=== PATIENT | female | born 1965 | race Caucasian/White ===

== ENCOUNTER → 2024-07-18 14:04 | Outpatient (REF) | payer BC, SELFPAY | LOC: HWRAD 14:04 | PROVIDERS: ATTENDING PHYSICIAN Family Medicine | DX: M25.521 Pain in right elbow (principal); M25.531 Pain in right wrist | CPT/HCPCS: 73080; 73110 ==

== ENCOUNTER 2024-08-04 11:01 | Outpatient (RCR) | payer BC, SELFPAY | END 2024-08-04 23:59 | disposition home or self-care (01) | LOC: ROT 11:01 | PROVIDERS: ATTENDING PHYSICIAN Family Medicine | DX: M77.11 Lateral epicondylitis, right elbow (principal); Z73.6 Limitation of activities due to disability; M25.531 Pain in right wrist; M62.81 Muscle weakness (generalized) | CPT/HCPCS: 97010; 97035; 97110; 97166; 97535 ==

== ENCOUNTER → 2024-08-08 14:04 | Outpatient (REF) | payer BC, SELFPAY | LOC: HWRAD 14:04 | PROVIDERS: ATTENDING PHYSICIAN Family Medicine | DX: R93.7 Abnormal findings on diagnostic imaging of other parts of musculoskeletal system (principal); N95.1 Menopausal and female climacteric states | CPT/HCPCS: 77080 ==

== ENCOUNTER 2024-09-01 11:03 | Outpatient (RCR) | payer BC, SELFPAY | END 2024-09-01 23:59 | disposition home or self-care (01) | LOC: ROT 11:03 | PROVIDERS: ATTENDING PHYSICIAN Family Medicine | DX: M77.11 Lateral epicondylitis, right elbow (principal); Z73.6 Limitation of activities due to disability | CPT/HCPCS: 97010; 97035; 97110; 97140 ==

== ENCOUNTER 2024-09-26 16:17 | Emergency (ER) | payer BC, SELFPAY ==
[2024-09-26 16:20] VITALS: BP 151/113
--- NOTE | 2024-09-26 16:29 | ED.GENMED ---
ED Provider Triage
<Willis Merino PA-C - Last Filed: 09/26/24 16:31>
-
Patient seen by provider in Triage?: Seen in Triage
Attestation: A medical screening examination has been initiated by a qualified medical provider. Based on the assessment performed at this time, it has been determined that an emergent medical condition may exist and the patient has been informed
that further medical evaluation and possible additional diagnostic testing may be needed.
HPI: 58-year-old female sent to the emergency department at request of primary care provider for evaluation of lower abdominal pain and rectal bleeding that is been ongoing since September 07. Not any worse today but symptoms not improving. Patient
hemodynamically stable and in no acute distress. Labs and CT of the abdomen and pelvis ordered.
GENERAL: Alert , in no apparent distress
EYE: No visual abnormalities.
NECK: Trachea midline
ENT: No visible abnormalities.
LUNGS: No acute respiratory distress
NEUROLOGICAL: Alert and oriented
SKIN: Skin intact. No visible changes.
MUSCULOSKELETAL: Moving extremities normally
PSYCH: Normal and appropriate interaction.
This is a medical evaluation conducted in person to initiate diagnostic evaluation and provide initial therapeutics. Please see further documentation by the treating clinician.
History of Present Illness
<Willis Merino PA-C - Last Filed: 09/26/24 16:31>
General
Chief Complaint: Rectal Bleeding
Time Seen by Provider: 09/26/24 19:10
<ILYA Wang - Last Filed: 09/26/24 20:26>
General
Source: patient
Exam Limitations: none
History of Present Illness
History of Present Illness:
This is a 58 year old female that comes in with c/o rectal bleeding. State that this started on September 07. States that it is bright red bleeding and it is when she has a stool. States that she has only gone once daily. States that she does have
hemorrhoids. States that she has abd pain. Denies any fever, chills, chest pain, SOB, nausea, vomiting, diarrhea, headache, dizziness, urinary burning.
Past History
<Willis Merino PA-C - Last Filed: 09/26/24 16:31>
Past History
ED Past Medical History: Other (N/A)
ED Past Surgical History: Other (N/A)
Social History
Tobacco: Non-smoker
Personal:
Living: with family
<ILYA Wang - Last Filed: 09/26/24 20:26>
Past History
ED Past Medical History: Cancer (Left breast cancer) and Other (Headache, )
ED Past Surgical History: and Other (Left breast lumpectomy Then mastectomy, abd skin flap)
Social History
Tobacco: Non-smoker
Alcohol: Daily (Beer 2)
Personal:
Living: with family
Review of Systems
<ILYA Wang - Last Filed: 09/26/24 20:26>
Review of Systems
All Other Systems: ROS reviewed and negative except as documented in HPI and ROS
Constitutional: Reports no symptoms; Denies fever or chills
EENT: Reports no symptoms
Respiratory: Denies cough or trouble breathing
Cardiac: Reports no symptoms; Denies chest pain
ABD/GI: Reports abdominal pain; Denies nausea, vomiting or diarrhea
: Reports no symptoms; Denies dysuria, frequency or urgency
Musculoskeletal: Reports no symptoms
Skin: Reports no symptoms
Neurological: Reports no symptoms; Denies dizzy or headache
Psychiatric: Reports no symptoms
Phy Exam
<ILYA Wang - Last Filed: 09/26/24 20:26>
General Physical Exam
General Presentation: well appearing and no apparent distress
General age: appears stated age
General Skin: warm and dry
General Habitus: normal
General Mental: alert
General Hydration: appears well hydrated
ENT Exam
ENT Exam: TM's normal, pharynx normal and neck supple
Eye Exam
Eye Exam: EOMI
Cardiovascular Exam
Cardiovascular Exam: regular rate/rhythm, no edema, no murmur and normal peripheral pulses
Pulmonary Exam
Pulmonary Exam: lungs clear, no respiratory distress, no rales, chest non tender, no crackles, no rhonchi, no wheezing and no cough
Gastrointestinal Exam
Gastrointestinal Exam: normal bowel sounds, soft, no organomegaly, no pulsatile mass, non distended and tender (Right lower abd tenderness with palpation)
Musculoskeletal Exam
Musculoskeletal Exam: full ROM and no edema
Skin Exam
Skin Exam: normal color, warm/dry, no rash and no petechia
Psychiatric Exam
Psychiatric Exam: normal mood/affect
Course
<Willis Merino PA-C - Last Filed: 09/26/24 16:31>
Orders/Labs/Results
Orders:
Orders
09/26/24 16:30
Type+Screen Urgent
CT Abd/pel W Iv And Oral Contr Urgent
Comment:
Reason For Exam: lower abd pain, rectal bleeding
Complete Blood Count/With Diff Urgent
Comprehensive Metabolic Panel Urgent
Lipase Urgent
Iohexol [Omnipaque] See Protocol PO NOW STA
09/26/24 16:31
Iohexol [Omnipaque] 50 ml .ROUTE .STK-MED ONE
09/26/24 19:12
PTT Urgent
Prothrombin Time Urgent
Abnormal Lab Results
09/26/24
16:30
Hct 48.5 H %
(37.0-47.0)
Absolute Monos (auto) 0.7 H 10^3/uL
(0.1-0.6)
Monocytes % 9.6 H %
(1.7-9.3)
Carbon Dioxide 21 L mmol/L
(22-30)
BUN 19 H mg/dl
(7-17)
Glucose 100 H mg/dl
(70-99)
ALT 57 H U/L
(0-35)
09/26/24 16:30
09/26/24 16:30
Vital Signs
Initial and Last Documented VS:
Initial Vital Signs
Temp Pulse Resp BP Pulse Ox
97.7 F 104 18 151/113 94
09/26/24 16:20 09/26/24 16:20 09/26/24 16:20 09/26/24 16:20 09/26/24 16:20
Last Documented Vital Signs
Temp Pulse Resp BP Pulse Ox
97.7 F 101 19 160/113 97
09/26/24 16:20 09/26/24 18:46 09/26/24 18:46 09/26/24 18:46 09/26/24 19:55
<ILYA Wang - Last Filed: 09/26/24 20:26>
Orders/Labs/Results
Orders:
Orders
09/26/24 16:30
Type+Screen Urgent
CT Abd/pel W Iv And Oral Contr Urgent
Comment:
Reason For Exam: lower abd pain, rectal bleeding
Complete Blood Count/With Diff Urgent
Comprehensive Metabolic Panel Urgent
Lipase Urgent
Iohexol [Omnipaque] See Protocol PO NOW STA
09/26/24 16:31
Iohexol [Omnipaque] 50 ml .ROUTE .STK-MED ONE
09/26/24 19:12
PTT Urgent
Prothrombin Time Urgent
Abnormal Lab Results
09/26/24
16:30
Hct 48.5 H %
(37.0-47.0)
Absolute Monos (auto) 0.7 H 10^3/uL
(0.1-0.6)
Monocytes % 9.6 H %
(1.7-9.3)
Carbon Dioxide 21 L mmol/L
(22-30)
BUN 19 H mg/dl
(7-17)
Glucose 100 H mg/dl
(70-99)
ALT 57 H U/L
(0-35)
09/26/24 16:30
09/26/24 16:30
Carbon dioxide very slightly low. Slight Dehydration. Glucose nonfasting. ALT mildly elevated. Lipase normal at 100, PT 12.7 with INR 0.93, PTT 25.4
Vital Signs
Initial and Last Documented VS:
Initial Vital Signs
Temp Pulse Resp BP Pulse Ox
97.7 F 104 18 151/113 94
09/26/24 16:20 09/26/24 16:20 09/26/24 16:20 09/26/24 16:20 09/26/24 16:20
Last Documented Vital Signs
Temp Pulse Resp BP Pulse Ox
97.7 F 101 19 160/113 97
09/26/24 16:20 09/26/24 18:46 09/26/24 18:46 09/26/24 18:46 09/26/24 19:55
<ILYA Wang - Last Filed: 09/26/24 20:26>
MDM/Problems Addressed
Differential Diagnosis Includes:
Appendicitis. Hemorrhoids,
MDM/Problems Addressed:
This is a 58 year old female that comes in with c/o rectal bleeding and abd pain. States that this started on September 07. States that this is only with BM's and she is only going once daily.
Will check labs and get CT scan.
Back into see patient. Explained that her CT scan is normal. There is no inflammatory process, obstruction, renal calculus or any other concerns. This is most likely bleeding from her Hemorrhoids as her Hgb is 16.0 Patient to follow up with the
family doctor and her [employer] for further evaluation. Offered patient an US of the Pelvis to check her ovaries but patient decided to wait. Will discharge home.
Chronic conditions affecting care: Cancer
Acute Exacerbation and/or Progression of Chronic Illness:
NA
<ILYA Wang - Last Filed: 09/26/24 20:26>
*Radiology
Radiology exam reviewed: radiology read reviewed (CT-No evidence for an acute inflammatory process in the abdomen or pelvis. )
*Pulse Oximetry
Patient hypoxic: no
*EKG
Interpreted by ED Provider?: NA
Rate: EKG- N/A
*Quick Service Technician Interpretation
Rate: Quick Service Technician- N/A
*Critical Care Note
Total Time (30-74mins, 75-104mins- exclusive of procedures): Not Applicable
ED Attending Note
<Willis Merino PA-C - Last Filed: 09/26/24 16:31>
-
Portions of this chart may have been created with voice recognition software.� Occasional wrong word or��sound alike� substitutions may have occurred due to the inherent limitations of voice recognition software.
Discharge Plan
Departure
Patient Disposition: Home (Routine Discharge)
Date of Disposition: 09/26/24
Time of Disposition: 20:22
Patient with high blood pressure during this ER visit?: Yes
Condition: Good
Covid-19: Not Applicable
Discharge Problem:
Abdominal pain, Bleeding hemorrhoids
Instructions: Hemorrhoids (DC), Abdominal Pain, BLOOD PRESSURE
Prescriptions:
No Action
Prevacid
Referrals:
NONE,* [Family Provider] -
Activity Restrictions/Additional Instructions:
As discussed, your blood work shows very slight Dehydration. Please increase your water intake to 8-8oz glasses daily. Your CT of negative for any acute process. Please follow up with the family doctor and your [employer] OFF[employer] if you continue with right
lower abd pain. Please use Tylenol 1000mg every 6 hours as needed for any pain. IF YOU HAVE INCREASED OR CHANGING PAIN, OR YOU HAVE ANY OTHER CONCERNS PLEASE RETURN TO THE EMERGENCY ROOM.
Interventions
Interventions:
*Risk Screen - Suicide Last Done: 09/26/24 16:20
*General Assessment Last Done: 09/26/24 16:20
*Neglect/Abuse Screening Last Done: 09/26/24 16:20
ED- Fall Risk Assessment Last Done: 09/26/24 19:55
*ED COVID-19 Vaccine History Last Done: 09/26/24 16:20
HK-Qcbcov-Mvkcrwmczb Assessment Last Done: 09/26/24 19:55
ED- Cardiac Assessment Last Done: 09/26/24 19:55
ED- Pulmonary Assessment Last Done: 09/26/24 19:55
Discharge Date and Time
Print Language: MALAY
[2024-09-26] MEDS: OMNIPAQUE 50 ML PO (16:36)
[2024-09-26 16:46] LABS: % Basophils 0.6 % (0-2); % Eosinophils 0.7 % (0-6); % Immature Granulocytes 0.3 % (0-0.5); % Lymphocytes 35.1 % (20.5-51.1); % Monocytes 9.6 % (1.7-9.3); % Neutrophils 53.7 % (42.2-75.2); Absolute Eosinophils 0.1 10^3/uL (0-0.7); Absolute Lymphocytes 2.4 10^3/uL (1.2-3.4); Absolute Monocytes 0.7 10^3/uL (0.1-0.6); Absolute Neutrophils 3.7 10^3/uL (1.4-6.5); Hematocrit 48.5 % (37.0-47.0); Mean Corpuscular Hgb 30.1 pg (27.0-31.0); Mean Corpuscular Volume 91.2 fL (81.0-99.0); Mean Platelet Volume 10.1 fL (7.4-10.4); Nucleated Red Blood Cells % 0 %; Platelet Count 269 10^3/uL (130-400); Red Blood Cell Count 5.32 10^6/uL (4.20-5.40)
[2024-09-26 16:54] LABS: ALT (SGPT) 57 U/L (0-35); AST (SGOT) 32 U/L (14-36); Albumin 4.7 g/dl (3.5-5.0); Alkaline Phosphatase 62 U/L (38-126); Blood Urea Nitrogen 19 mg/dl (7-17); Calcium 10.1 mg/dl (8.4-10.2); Carbon Dioxide 21 mmol/L (22-30); Chloride 106 mmol/L (98-107); Glucose 100 mg/dl (70-99); Lipase 100 U/L (23-300); Potassium 4.4 mmol/L (3.5-5.1); Sodium 139 mmol/L (135-145); Total Bilirubin 0.8 mg/dl (0.2-1.3); Total Protein 7.3 g/dl (6.3-8.2); eGFR > 60.00
[2024-09-26 18:46] VITALS: BP 160/113
[2024-09-26 19:30] LABS: INR 0.93; PT 12.7 Sec (11.4-14.6)
[2024-09-26 19:31] LABS: APTT 25.4 Sec (23.4-35.0)
[2024-09-26 20:10] VITALS: BP 139/104
== END 2024-09-26 20:33 | disposition home or self-care (01) ==
LOC: EMR 16:17
PROVIDERS: Physician Assistant Medical; EMERGENCY PHYSICIAN Emergency Medicine
DX: R10.30 Lower abdominal pain, unspecified (principal); K62.5 Hemorrhage of anus and rectum; K64.9 Unspecified hemorrhoids; Z85.3 Personal history of malignant neoplasm of breast
CPT/HCPCS: 99284; 74177; 80053; 83690; 85025; 85610; 85730; 86850; 86900; 86901; Q9967

== ENCOUNTER 2024-11-07 11:12 | Outpatient (RCR) | payer BC, SELFPAY | END 2024-11-07 23:59 | disposition home or self-care (01) | LOC: ROT 11:12 | PROVIDERS: ATTENDING PHYSICIAN Family Medicine | DX: M77.11 Lateral epicondylitis, right elbow (principal); Z73.6 Limitation of activities due to disability | CPT/HCPCS: 97010; 97110; 97140 ==

== ENCOUNTER 2024-11-21 11:04 | Outpatient (RCR) | payer BC, SELFPAY | END 2024-11-21 23:59 | disposition home or self-care (01) | LOC: ROT 11:04 | PROVIDERS: ATTENDING PHYSICIAN Family Medicine | DX: M77.11 Lateral epicondylitis, right elbow (principal); Z73.6 Limitation of activities due to disability | CPT/HCPCS: 97018; 97110; 97140 ==

== ENCOUNTER → 2025-02-24 14:06 | Outpatient (REF) | payer BC, SELFPAY | LOC: RAD 14:06 | PROVIDERS: ATTENDING PHYSICIAN Family Medicine | DX: R10.13 Epigastric pain (principal); K62.5 Hemorrhage of anus and rectum; R10.31 Right lower quadrant pain | CPT/HCPCS: 74177; Q9967 ==

== ENCOUNTER → 2025-03-20 14:21 | Outpatient (REF) | payer BC, SELFPAY | LOC: HWRAD 14:21 | PROVIDERS: ATTENDING PHYSICIAN Family Medicine | DX: R10.13 Epigastric pain (principal); R10.12 Left upper quadrant pain; R74.01 Elevation of levels of liver transaminase levels | CPT/HCPCS: 76700 ==

== ENCOUNTER 2025-03-29 06:22 | Day surgery (SDC) | payer BC, SELFPAY | END 2025-03-29 14:49 | disposition home or self-care (01) | LOC: GI 06:22 | PROVIDERS: ATTENDING PHYSICIAN Internal Medicine | DX: R10.31 Right lower quadrant pain (principal); K64.8 Other hemorrhoids; K57.30 Diverticulosis of large intestine without perforation or abscess without bleeding; D12.2 Benign neoplasm of ascending colon; D12.3 Benign neoplasm of transverse colon; D12.4 Benign neoplasm of descending colon; Z80.0 Family history of malignant neoplasm of digestive organs | CPT/HCPCS: 45385; 45380; 88305 ==